=== PATIENT | male | born 1975 | race Caucasian/White ===

== ENCOUNTER 2021-11-16 10:23 | Inpatient (IN) | payer OTHER ==
[2021-11-16] MEDS ORDERED: MAG HYDROX/AL HYDROX/SIMETH 30 ML UNIT-DOSE CUP PO PRN (10:51)
[2021-11-16] MEDS ORDERED: ONDANSETRON *ODT* 4 MG TABLET SL PRN (10:51)
[2021-11-16] MEDS ORDERED: IBUPROFEN 400 MG TABLET (FP) PO PRN (10:51)
[2021-11-16] MEDS ORDERED: BISMUTH SUBSALICYLATE 524 MG/30 ML PO PRN (10:51)
[2021-11-16] MEDS ORDERED: ACETAMINOPHEN 325 MG TABLET (FP) PO PRN ×2 (10:51)
[2021-11-16] MEDS ORDERED: METHOCARBAMOL 500 MG TABLET PO PRN (10:51)
[2021-11-16] MEDS ORDERED: NICOTINE 10 MG CARTRIDGE (INHALER) IH PRN (10:51)
[2021-11-16] MEDS ORDERED: LORazepam 1 MG TABLET PO PRN (10:51)
[2021-11-16] MEDS ORDERED: MAGNESIUM CITRATE 300 ML BOTTLE PO PRN (10:51)
[2021-11-16] MEDS ORDERED: MAGNESIUM HYDROX 2400MG/30ML ORAL SUSPENSION 30 ML CUP PO PRN (10:51)
[2021-11-16] MEDS ORDERED: MENTHOL/PHENOL 1 EACH UD MM PRN (10:51)
[2021-11-16 11:37] VITALS: BMI 27.6
[2021-11-16] MEDS ORDERED: INSULIN (NOVOLOG) ASPART 100 UNITS/ML 10ML VIAL ONE (12:13)
[2021-11-16] MEDS: PRENATAL VITAMINS W/ FOLIC ACID TABLET (FP) PO SCH (12:16)
[2021-11-16] MEDS: NICOTINE 21 MG/24 HOURS TOPICAL PATCH TD SCH (12:16)
[2021-11-16] MEDS: LORazepam 2 MG TABLET PO SCH ×3 (12:16→22:44)
[2021-11-16] MEDS ORDERED: Insulin (LOG) Aspart 100 UNITS/ML VIAL SQ ONE (12:30)
[2021-11-16] MEDS: hydrOXYzine PAMOATE 25 MG CAPSULE (FP) PO SCH ×3 (14:16→22:44)
[2021-11-16] MEDS: GABAPENTIN 300 MG CAPSULE PO SCH ×2 (16:12→22:44)
[2021-11-16] MEDS: INSULIN SLIDING SCALE (NOVOLOG) 1 VIAL SQ SCH (18:14)
[2021-11-16] MEDS ORDERED: DOXEPIN HCL 50 MG CAPSULE PO SCH (22:00)
[2021-11-16] MEDS ORDERED: MELATONIN 5 MG TABLETS PO SCH (22:00)
[2021-11-16] MEDS: DIVALPROEX SODIUM 500 MG TABLET E.C. PO SCH (22:44)
[2021-11-16] MEDS: DOXEPIN HCL 25 MG CAPSULE PO SCH (22:44)
[2021-11-16] MEDS: THIAMINE HCL 100 MG TABLET (FP) PO SCH (22:44)
[2021-11-17] MEDS: GABAPENTIN 300 MG CAPSULE PO SCH ×3 (06:32→22:32)
[2021-11-17] MEDS: hydrOXYzine PAMOATE 25 MG CAPSULE (FP) PO SCH ×5 (06:32→22:32)
[2021-11-17] MEDS: LORazepam 2 MG TABLET PO SCH ×4 (06:32→22:32)
[2021-11-17] MEDS: INSULIN SLIDING SCALE (NOVOLOG) 1 VIAL SQ SCH ×3 (08:07→18:06)
[2021-11-17] MEDS: DIVALPROEX SODIUM 500 MG TABLET E.C. PO SCH ×2 (10:23→22:32)
[2021-11-17] MEDS: ARIPiprazole 10 MG TABLET PO SCH (10:23)
[2021-11-17] MEDS: NICOTINE 21 MG/24 HOURS TOPICAL PATCH TD SCH (10:24)
[2021-11-17] MEDS: PRENATAL VITAMINS W/ FOLIC ACID TABLET (FP) PO SCH (10:24)
[2021-11-17] MEDS ORDERED: INSULIN (NOVOLOG) ASPART 100 UNITS/ML 10ML VIAL ONE (12:18)
[2021-11-17 13:54] LABS: ALBUMIN 3.5 g/dl (3.4-5.0); BLOOD UREA NITROGEN 12.9 mg/dL (7-18); CALCIUM 9.1 mg/dL (8.5-10.1)
[2021-11-17 13:56] LABS: CREATININE 0.9 mg/dL (0.55-1.3)
[2021-11-17 13:57] LABS: HEMATOCRIT 46.8 % (35.4-49); HEMOGLOBIN 14.9 GM/dL (11.7-16.9); MCH 27.3 pg (25.7-33.7); MCHC 31.9 g/dl (32.0-35.9); MEAN CELL VOLUME 85.5 fl (80-96); MEAN PLT VOLUME 9.1 fl (7.5-11.1); PLATELET COUNT 185 10^3/uL (134-434); RBC 5.48 M/mm3 (4.00-5.60); RDW 15.8 % (11.9-15.9); WHITE BLOOD COUNT 5.7 K/mm3 (4.0-10.0)
[2021-11-17 13:59] LABS: BILIRUBIN,TOTAL 0.5 mg/dL (0.2-1); TOT PROT 7.2 g/dl (6.4-8.2)
[2021-11-17] MEDS: THIAMINE HCL 100 MG TABLET (FP) PO SCH (22:32)
[2021-11-17] MEDS: DOXEPIN HCL 25 MG CAPSULE PO SCH (22:32)
[2021-11-17] MEDS ORDERED: ALBUTEROL SO4 HFA INHALER IH PRN (23:19)
[2021-11-17] MEDS ORDERED: INSULIN (NOVOLOG) ASPART 100 UNITS/ML 10ML VIAL SQ ONE (23:23)
[2021-11-17] MEDS: BUDESONIDE/FORMETEROL FUMARATE 80/4.5 mcg INHALER IH SCH (23:36)
[2021-11-17] MEDS: ATORVASTATIN CA 20 MG TABLET (FP) PO SCH (23:36)
[2021-11-17] MEDS: INSULIN (LEVEMIR) 100 UNITS/ML UNITS SQ SCH (23:36)
[2021-11-18] MEDS: metFORMIN HCL 500 MG TABLET (FP) PO SCH ×2 (06:00→17:55)
[2021-11-18] MEDS: GABAPENTIN 300 MG CAPSULE PO SCH ×3 (06:01→22:59)
[2021-11-18] MEDS: LORazepam 1 MG TABLET PO SCH ×4 (06:01→23:05)
[2021-11-18] MEDS: hydrOXYzine PAMOATE 25 MG CAPSULE (FP) PO SCH ×5 (06:02→22:59)
[2021-11-18] MEDS: INSULIN SLIDING SCALE (NOVOLOG) 1 VIAL SQ SCH ×3 (08:12→17:55)
[2021-11-18] MEDS: PRENATAL VITAMINS W/ FOLIC ACID TABLET (FP) PO SCH (10:39)
[2021-11-18] MEDS: ARIPiprazole 10 MG TABLET PO SCH (10:39)
[2021-11-18] MEDS: LISINOPRIL 10 MG TABLET PO SCH (10:39)
[2021-11-18] MEDS: ASPIRIN 81 MG CHEWABLE TABLETS PO SCH (10:39)
[2021-11-18] MEDS: FAMOTIDINE 20 MG TABLET PO SCH (10:39)
[2021-11-18] MEDS: DIVALPROEX SODIUM 500 MG TABLET E.C. PO SCH ×2 (10:39→23:04)
[2021-11-18] MEDS: NICOTINE 21 MG/24 HOURS TOPICAL PATCH TD SCH (10:40)
[2021-11-18] MEDS: BUDESONIDE/FORMETEROL FUMARATE 80/4.5 mcg INHALER IH SCH ×2 (10:40→23:04)
[2021-11-18] MEDS ORDERED: INSULIN (NOVOLOG) ASPART 100 UNITS/ML 10ML VIAL ONE (12:11)
[2021-11-18] MEDS: ATORVASTATIN CA 20 MG TABLET (FP) PO SCH (22:59)
[2021-11-18] MEDS: INSULIN (LEVEMIR) 100 UNITS/ML UNITS SQ SCH (23:01)
[2021-11-18] MEDS: THIAMINE HCL 100 MG TABLET (FP) PO SCH (23:05)
[2021-11-19] MEDS ORDERED: LORazepam 0.5 MG TABLET PO PRN
[2021-11-19] MEDS: DOXEPIN HCL 25 MG CAPSULE PO SCH ×2 (00:57→21:19)
[2021-11-19] MEDS: hydrOXYzine PAMOATE 25 MG CAPSULE (FP) PO SCH ×5 (05:56→21:19)
[2021-11-19] MEDS: GABAPENTIN 300 MG CAPSULE PO SCH ×3 (05:56→21:18)
[2021-11-19] MEDS: LORazepam 0.5 MG TABLET PO SCH ×4 (05:58→22:30)
[2021-11-19] MEDS: metFORMIN HCL 500 MG TABLET (FP) PO SCH ×2 (07:29→17:14)
[2021-11-19] MEDS: INSULIN SLIDING SCALE (NOVOLOG) 1 VIAL SQ SCH ×3 (07:44→17:15)
[2021-11-19] MEDS: ARIPiprazole 10 MG TABLET PO SCH (10:41)
[2021-11-19] MEDS: NICOTINE 21 MG/24 HOURS TOPICAL PATCH TD SCH (10:44)
[2021-11-19] MEDS: ASPIRIN 81 MG CHEWABLE TABLETS PO SCH (10:44)
[2021-11-19] MEDS: LISINOPRIL 10 MG TABLET PO SCH (10:44)
[2021-11-19] MEDS: FAMOTIDINE 20 MG TABLET PO SCH (10:44)
[2021-11-19] MEDS: PRENATAL VITAMINS W/ FOLIC ACID TABLET (FP) PO SCH (10:44)
[2021-11-19] MEDS: DIVALPROEX SODIUM 500 MG TABLET E.C. PO SCH ×2 (10:44→21:19)
[2021-11-19] MEDS: BUDESONIDE/FORMETEROL FUMARATE 80/4.5 mcg INHALER IH SCH ×2 (10:44→23:30)
[2021-11-19 11:37] LABS: HIV INTERPRETATION NEGATIVE (NEGATIVE)
[2021-11-19] MEDS: ATORVASTATIN CA 20 MG TABLET (FP) PO SCH (21:18)
[2021-11-19] MEDS: THIAMINE HCL 100 MG TABLET (FP) PO SCH (21:19)
[2021-11-19] MEDS: INSULIN (LEVEMIR) 100 UNITS/ML UNITS SQ SCH (21:23)
[2021-11-19] MEDS ORDERED: METOPROLOL TARTRATE 25 MG TABLET (FP) PO ONE (23:21)
[2021-11-20] MEDS ORDERED: LORazepam 0.5 MG TABLET PO ONE (05:00)
[2021-11-20] MEDS: hydrOXYzine PAMOATE 25 MG CAPSULE (FP) PO SCH ×3 (06:00→13:28)
[2021-11-20] MEDS: metFORMIN HCL 500 MG TABLET (FP) PO SCH (06:00)
[2021-11-20] MEDS: GABAPENTIN 300 MG CAPSULE PO SCH ×2 (06:00→13:27)
[2021-11-20] MEDS: INSULIN SLIDING SCALE (NOVOLOG) 1 VIAL SQ SCH ×2 (07:06→11:00)
[2021-11-20 09:00] VITALS: TEMP 97.3
[2021-11-20] MEDS: FAMOTIDINE 20 MG TABLET PO SCH (10:40)
[2021-11-20] MEDS: ARIPiprazole 10 MG TABLET PO SCH (10:40)
[2021-11-20] MEDS: PRENATAL VITAMINS W/ FOLIC ACID TABLET (FP) PO SCH (10:40)
[2021-11-20] MEDS: DIVALPROEX SODIUM 500 MG TABLET E.C. PO SCH (10:40)
[2021-11-20] MEDS: ASPIRIN 81 MG CHEWABLE TABLETS PO SCH (10:40)
[2021-11-20] MEDS: BUDESONIDE/FORMETEROL FUMARATE 80/4.5 mcg INHALER IH SCH (10:41)
[2021-11-20] MEDS: NICOTINE 21 MG/24 HOURS TOPICAL PATCH TD SCH (10:41)
[2021-11-20] MEDS: LISINOPRIL 10 MG TABLET PO SCH (10:41)
[2021-11-20] MEDS ORDERED: INSULIN (NOVOLOG) ASPART 100 UNITS/ML 10ML VIAL ONE (11:07)
[2021-11-20 12:49] VITALS: BP 138/78; PULSE 120
== END 2021-11-20 16:20 | disposition home or self-care (01) | DRG 897 ==
LOC: YASAS 10:23 → Y6N 12:47
PROVIDERS: ADMIT Allergy & Immunology; ATTEND Allergy & Immunology
PROC: HZ2ZZZZ Detoxification Services for Substance Abuse Treatment (ICD-10-PCS; principal; 2021-11-16)
DX: F10.230 Alcohol dependence with withdrawal, uncomplicated (principal); F14.20 Cocaine dependence, uncomplicated; F19.282 Other psychoactive substance dependence with psychoactive substance-induced sleep disorder; F17.210 Nicotine dependence, cigarettes, uncomplicated; F19.24 Other psychoactive substance dependence with psychoactive substance-induced mood disorder; F25.0 Schizoaffective disorder, bipolar type; F43.10 Post-traumatic stress disorder, unspecified; I10 Essential (primary) hypertension; J44.9 Chronic obstructive pulmonary disease, unspecified; K21.9 Gastro-esophageal reflux disease without esophagitis; E11.9 Type 2 diabetes mellitus without complications; Z79.4 Long term (current) use of insulin; Z88.8 Allergy status to other drugs, medicaments and biological substances; Z59.01 Sheltered homelessness
CPT/HCPCS: 36415; 80053; 82962; 83036; 85027; 86780; 87389; C9803; Q0162; U0003; U0005